=== PATIENT | female | born 1950 | race Caucasian/White ===

== ENCOUNTER → 2020-03-13 | Outpatient (CLI) | payer MEDICARE ==
[~2020-03-13] MED LIST: ATOR10 PO; Aspirin EC81 MG PO; Glucophage Xr750 MG PO
== END | disposition home or self-care (01) ==
LOC: LAB SHORT 11:12 → PLD 11:12
DX: B35.1 Tinea unguium (principal); L60.2 Onychogryphosis
CPT/HCPCS: 88305; 88312

== ENCOUNTER → 2021-07-12 | Outpatient (CLI) | payer MEDICARE ==
[2021-07-12 16:58] LABS: Bun/Creatinine Ratio 22.5 (12.0-20.0); Calcium, Blood 9.7 mg/dL (8.5-10.1); Creatinine, Blood 1.29 mg/dL (0.40-1.00); Potassium, Blood 4.6 mmol/L (3.5-5.5)
== END | disposition home or self-care (01) ==
LOC: LAB SHORT 12:30
PROVIDERS: Nurse Practitioner
DX: E11.319 Type 2 diabetes mellitus with unspecified diabetic retinopathy without macular edema (principal)
CPT/HCPCS: 80048; 82043

== ENCOUNTER → 2025-01-13 | Outpatient (CLI) | payer MEDICARE ==
[2025-01-13 20:16] LABS: Alanine Aminotransfer (ALT/SGP 21 U/L (12-78); Albumin, Blood 3.2 g/dL (3.4-5.0); Albumin/Globulin Ratio 0.9 (0.8-1.8); Anion Gap 11 mmol/L (3-11); Aspartate Aminotrans (AST/SGOT 10 U/L (12-37); Bilirubin, Total 0.4 mg/dL (0.1-1.0); Blood Urea Nitrogen 21 mg/dL (8-24); CHOL/HDL RATIO 3.9; CO2, Blood 25 mmol/L (21-32); Calcium, Blood 9.4 mg/dL (8.5-10.1); Chloride, Blood 107 mmol/L (98-108); Cholesterol 193 mg/dL (50-200); Creatinine, Blood 1.00 mg/dL (0.40-1.00); Globulin, Blood 3.4 g/dL (2.2-4.0); Glucose, Blood 221 mg/dL (70-99); HDL Cholesterol 49 mg/dL (>39); LDL/HDL RATIO 2.2; Low Density Lipoprotein Chol 110 mg/dL (0-110); Potassium, Blood 4.5 mmol/L (3.5-5.5); Sodium, Blood 138 mmol/L (136-145); Total Protein, Blood 6.6 g/dL (6.4-8.2); Triglycerides 171 mg/dL (30-160); Very Low Density Lipoprot Chol 34 mg/dL (6-32)
[2025-01-13 20:28] LABS: Creatinine, Urine Random 364.0 mg/dL (27.00-270.00); Microalb/Creat Ratio UR, Rand 10.852 mg/g (0.000-30.000); Microalbumin, Random Urine 39.5 mg/L (0.000-20.000)
== END ==
LOC: LAB SHORT 11:28 → LAB 11:28
PROVIDERS: Student in an Organized Health Care Education/Training Program
DX: E11.319 Type 2 diabetes mellitus with unspecified diabetic retinopathy without macular edema (principal)
CPT/HCPCS: 80053; 80061; 82043; 82570